=== PATIENT | female | born 1955 | race Caucasian/White ===

== ENCOUNTER 2017-02-07 13:16 | Emergency (ER) | payer BC ==
[~2017-02-07] VITALS: Ht 170.1 cm; Wt 47.6 kg
[~2017-02-07 13:16] MED LIST: MIDRIN (DURADR1 CAP PO
[2017-02-07] MEDS ORDERED: Motrin,Rufen800 MG PO (15:07)
== END 2017-02-07 15:08 | disposition home or self-care (01) ==
LOC: ED 13:16
DX: S29.011A Strain of muscle and tendon of front wall of thorax, initial encounter (principal); F17.200 Nicotine dependence, unspecified, uncomplicated; Z88.6 Allergy status to analgesic agent; X58.XXXA Exposure to other specified factors, initial encounter; Y93.89 Activity, other specified; Y92.89 Other specified places as the place of occurrence of the external cause; Y99.8 Other external cause status